=== PATIENT | male | born 1995 | race African-American/Black ===

== ENCOUNTER 2017-11-25 10:15 | Emergency (ER) | payer BC ==
[2017-11-25] MEDS: NAPROXEN 500 MG TABLET PO ×2 (10:53)
[2017-11-25] MEDS: CYCLOBENZAPRINE 10 MG TABLET. PO ×2 (10:53)
[2017-11-25] MEDS: HYDROcodone/APAP 5/325MG 1 TAB TABLET PO ×2 (10:54)
== END 2017-11-25 11:41 | disposition home or self-care (01) ==
LOC: ER 10:15
DX: M54.5 Low back pain (principal); M54.6 Pain in thoracic spine; M79.662 Pain in left lower leg; V43.52XA Car driver injured in collision with other type car in traffic accident, initial encounter; Y93.I9 Activity, other involving external motion; Y92.410 Unspecified street and highway as the place of occurrence of the external cause; Y99.8 Other external cause status
CPT/HCPCS: 72072; 72100; 73590; 99284